=== PATIENT | female | born 1990 | race African-American/Black ===

== ENCOUNTER 2016-05-30 11:36 | Observation (INO) | payer OTHER ==
--- NOTE | ~2016-05-30 | CT2 ---
[facility] A Service of [facility] & [facility] RADIOLOGY TEXT RESULTS PATIENT: ALEM TRAN LOCATION: [facility] 464-01 : [birth year] UNIT #: [id number] AGE: [address]: Edwin Chinchilla MD SEX: F ORDER DR: [id number] [facility] [address] [place], [place] [address] [id number] E MR#: [id number] Acc #: [id number] NAME: ALEM TRAN : 1990 SEX: F STUDY DATE/TIME: 05/30/2016 15:27 UNIT: [facility] ROOM: STUDY DESCRIPTION: CT Abd and Pelv W Cont Attending Physician: Arin Nguyen A.P.R.N. Ordering Physician: Maggie Miramontes M.D. Primary Care Physician: Maame Smith MEDICAL IMAGING REPORT This report is preliminary unless electronic signature is present CT of the abdomen and pelvis with contrast INDICATION lower abdominal pain since [address] images were obtained from the dome of the diaphragm to the symphysis pubis following the administration of intravenous contrast material. This CT exam was performed with one or more of the following radiation dose reduction techniques: automatic exposure control, adjustment of mA and/or kV according to patient size, and iterative reconstruction. FINDINGS Liver, spleen, and gallbladder all appear unremarkable as are the stomach and proximal small bowel adrenal glands pancreas and kidneys also appear normal. No free fluid or adenopathy is seen within the abdomen. There is no evidence of mechanical bowel obstruction. Patient's appendix is visualized and is within normal limits. Uterus is unremarkable, as are the ovaries. No free fluid or adenopathy is seen within the pelvis. I do question if perhaps the colon is diffusely thick-walled. I am uncertain if this is a true finding, or if the colon simply appears this way due to incomplete distension. Certainly correlation with any evidence of colitis is suggested. No pneumatosis or free air is seen. Review of bony windows does not demonstrate any aggressive osseous abnormalities. IMPRESSION 1. I do question if the patient's colon is somewhat thick-walled. This may simply be related to incomplete distension but certainly correlation with any evidence of colitis is suggested. No STS. [facility] A Service of [facility] & [facility] RADIOLOGY TEXT RESULTS PATIENT: ALEM TRAN LOCATION: [facility] 464-01 : [birth year] UNIT #: [id number] AGE: [address]: Edwin Chinchilla MD SEX: F ORDER DR: pneumatosis or free air is seen and there is certainly no evidence of obstruction. 2. Patient's appendix is visualized and is within normal limits. Please see the body of the report for any other additional incidental findings Dictated by... Nicci Tavera M.D. THIS IS AN ELECTRONICALLY VERIFIED REPORT Nicci Tavera M.D. at 06/01/2016 6:29 PM AFF/ron TD: 05/30/2016 19:04 JOB #: [id number] MEDICAL IMAGING REPORT Page 1 of 1 COPY
--- NOTE | ~2016-05-30 | HP ---
Unit #: [id number] #: [id number] Patient: ALEM TRAN [id number] [address] [address] [id number] I MR#: [id number] NAME: ALEM TRAN ROOM: 464 Age: 25 Sex: F Admission Date: 05/30/2016 : 1990 Attending Physician: Edwin Chinchilla M.D. Primary Care Physician: Maame Smith HISTORY AND PHYSICAL CHIEF COMPLAINT Hematochezia and lower abdominal pain, as well as syncope. HISTORY Ms. Tran is a pleasant 25-year-old female. The patient lives at home by herself. She works for [employer]. She apparently presented with history of lower abdominal cramping pain followed by true syncope when she completed blacked out. Subsequently she had multiple episodes of diarrhea with bright red blood, along with cramping in the lower abdomen. Today she is feeling much better. There is no history of fever, chills or rigors. She has no similar history in the past. PAST MEDICAL HISTORY The patient has no significant past medical history. PAST SURGICAL HISTORY She has no prior surgery. MEDICATIONS Does not take any regular medications. ALLERGIES Denies any drug allergies. SOCIAL HISTORY She does not smoke, drink alcohol. 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 FAMILY HISTORY There is no family history of colon or pancreas cancer or liver disease. REVIEW OF SYSTEMS A detailed review of organ systems does not reveal any recent weight loss. No history of fevers, chills or rigors. No history of headache, seizures, chest pain. No history of cough, expectoration or hemoptysis. No history of dysuria, hematuria or polyuria. No history of focal seizures or extremity weakness. The rest of the review of organ systems is unremarkable. PHYSICAL EXAMINATION GENERAL: On examination, she is alert and oriented, appears comfortable. VITAL SIGNS: Vital signs are stable with a temperature of 98, pulse 72 per minute and regular, respiratory rate 16, blood pressure 127/79. She weighs 248 pounds and appears a little bit overweight. Unit #: [id number] #: [id number] Patient: ALEM TRAN GENERAL: She has no pallor, icterus, lymphadenopathy or peripheral edema. CARDIOVASCULAR: Normal heart sounds. No murmurs on auscultation. RESPIRATORY: The lungs reveal normal breath sounds, good air entry. ABDOMEN: The abdomen is soft and nontender. The liver and spleen are not palpable. Bowel sounds are normal. DIAGNOSTIC STUDIES LABORATORY: Lab evaluation reveals a normal CBC. Serum chemistry shows a potassium of 2.9, glucose of 114. LFTs normal. Albumin is 4.6. IMAGING: A CT scan of the abdomen has not been done. CLINICAL IMPRESSION Most likely etiology of the patient's presentation is acute ischemic colitis. A diagnostic colonoscopy is warranted and will be scheduled for tomorrow. The pros and cons of the procedure, potential risks and complications have been discussed with the patient, and she was reassured. Thank you very much for asking me to see this pleasant patient, and I appreciate the consult. Dictated by Lien Colon TD: 05/31/2016 09:50 JOB #: [id number] HISTORY AND PHYSICAL Page 1 of 1 X Edwin Chinchilla MD X HISTORY AND PHYSICAL
--- NOTE | ~2016-05-30 | EKG ---
PATIENT: ALEM TRAN UNIT #: [id number] Ventricular Rate: 69 BPM Atrial Rate: 69 BPM P-R Interval: 122 ms QRS Duration: 86 ms Q-T Interval: 408 ms QTC Calculation(Bezet): 437 ms P [place]: 19 degrees Calculated R [place]: 70 degrees Calculated T [place]: 22 degrees Diagnosis Line: Normal sinus rhythm Diagnosis Line: Normal ECG Diagnosis Line: No previous ECGs available Diagnosis Line: Confirmed by CEE MASCORRO MD ([id number]) on 05/30/2016 Diagnosis Line: 11:36:03 PM INTERPRETING MD: SUBHA PATEL
--- NOTE | ~2016-05-30 | OR ---
Unit #: [id number] #: [id number] Patient: ALEM TRAN [id number] [address] [address] [id number] I MR#: [id number] NAME: ALEM TRAN ROOM: 464 Date of Procedure: 05/31/2016 Admission Date: 05/30/2016 Surgeon: Edwin Chinchilla M.D. : 1990 Attending Physician: Edwin Chinchilla M.D. Primary Care Physician: Maame Smith OPERATIVE REPORT PREOPERATIVE DIAGNOSES The patient presented with history of hematochezia, lower abdominal cramping pain, and syncope. The overall history of suggestive ischemic colitis. PROCEDURES PERFORMED Colonoscopy and biopsies. POSTOPERATIVE DIAGNOSES 1. The patient had classic changes of ischemic colitis at the splenic flexure with localized area of ulceration, erythema, edema, and friability with clear line of demarcation proximally and distally. Appropriate biopsies were obtained. 2. Rest of the examination up to cecum and terminal ileum was normal. The quality of the prep was excellent. RECOMMENDATIONS 1. We will obtain the patient's protein S, C and antithrombin 3 levels as well as LALO. 2. She will be started on regular diet. She should be able to go home later today evening. SEDATION USED MAC. DESCRIPTION OF PROCEDURE Following detailed explanation of the potential risks and complications of a colonoscopy, namely perforation, bleeding, and complications related to sedation, the patient was brought to GI lab and laid in the left lateral decubitus position. A digital rectal examination was performed which was normal. Lubricated tip of the Olympus video colonoscope was inserted through the anus and advanced under direct vision. The scope was advanced and passed rectosigmoid into descending colon. No diverticula were noticed in this area. As soon as the scope was advanced in the mid descending colon, abrupt transition from normal to abnormal was seen in the form of erythema, edema, juventino ulceration, and friability. The ulceration extended in the area of the splenic flexure and distal transverse colon, again diverted to normal mucosa thereafter. The scope tip was then navigated all the way up to cecum with visualization of the ileocecal valve and the appendiceal orifice. Preparation was excellent with good visualization and photodocumentation was obtained. Last several inches of the terminal ileum also visualized after intubation of the Unit #: [id number] #: [id number] Patient: CHELSEA,ALEM ileocecal valve and appeared normal. Successive segments of the colonic mucosa were examined upon withdrawal and appeared unremarkable except for the changes of colonic ischemia noted earlier. Appropriate biopsies obtained from this area. No polyps were noted. The patient did not have any diverticulosis nor any hemorrhoids. The scope was then withdrawn. The patient returned to the recovery area. She tolerated the procedure without any postprocedure complications. Dictated by... Lien Colon/emmy TD: 05/31/2016 11:09 JOB #: [id number] CC: Maame Smith A.P.R.N. OPERATIVE REPORT Page 1 of 1 X Edwin Chinchilla MD X PROCEDURE OPERATIVE NOTE
[2016-05-30 10:26] LABS: BASOPHIL% 0.5 % (0-2.5); EOSINOPHIL% 0.4 % (0.0-7.0); HEMATOCRIT 47.7 % (35.0-45.0); HEMOGLOBIN 15.3 gm/dL (12.0-16.0); LYMPHOCYTE# 1.6 X10e3 (1.0-3.5); LYMPHOCYTE% 21.8 % (17.0-45.0); MEAN CORPUSCULAR HEMOGLOBIN 28.8 PG (28-34); MEAN PLATELET VOLUME 7.7 FL (6.5-11.5); MONOCYTE# 0.5 X10e3 (0-1.0); MONOCYTE% 6.9 % (3.0-12.0); NEUTROPHIL% 70.4 % (40-75); PLATELET COUNT 281 X10e3 (140-420); RED CELL DISTRIBUTION WIDTH 13.8 % (11.0-15.5); WHITE BLOOD COUNT 7.1 X10e3 (4.0-10.5)
[2016-05-30 10:30] LABS: DIFF IND NO
[2016-05-30 11:07] LABS: ALBUMIN SERUM 4.6 g/dL (3.5-5.0); BILIRUBIN, DIRECT 0.1 mg/dL (0.0-0.2); BILIRUBIN,INDIRECT 0.7 mg/dL (0.0-0.9); BILIRUBIN,TOTAL 0.8 mg/dL (0.2-2.0); BUN/CREATININE RATIO 15.55; CALCIUM SERUM 9.6 mg/dL (8.4-10.2); CREATININE SERUM 0.9 mg/dL (0.6-1.4); GLOM FILT RATE Estimated 87.7 mL/min (>60); PROTEIN TOTAL SERUM 8.6 g/dL (6.0-8.3)
[2016-05-30 11:13] LABS: POTASSIUM 2.9 mmol/L (3.5-5.1)
[2016-05-30 12:00] LABS: URINE SOURCE CLEAN CATCH
[2016-05-30 12:04] LABS: URINE APPEARANCE CLOUDY; URINE BLOOD NEG (NEG); URINE COLOR DK YELLOW; URINE GLUCOSE NEG (NEG); URINE KETONE TRACE (NEG); URINE LEUKOCYTE ESTERASE TRACE (NEG); URINE NITRATE NEG (NEG); URINE PROTEIN NEG (NEG); URINE SPECIFIC GRAVITY 1.027 (1.003-1.035)
[2016-05-30 12:07] LABS: CULTURE INDICATED? YES; URINE BACTERIA AUWI 1+ (NEGATIVE); URINE SQUAMOUS EPITHELIAL CELL OCC /[HPF]
[2016-05-30 12:09] LABS: URINE BILIRUBIN NEG (NEG)
[2016-05-30] MEDS ORDERED: NO MEDICATIONS (23:32)
[2016-05-31 03:32] LABS: BASOPHIL% 0.5 % (0-2.5); EOSINOPHIL% 0.3 % (0.0-7.0); HEMATOCRIT 42.9 % (35.0-45.0); HEMOGLOBIN 14.2 gm/dL (12.0-16.0); LYMPHOCYTE# 1.8 X10e3 (1.0-3.5); LYMPHOCYTE% 24.1 % (17.0-45.0); MEAN CELL VOLUME 89.4 FL (83-96); MEAN CORPUSCULAR HEMOGLOBIN 29.6 PG (28-34); MEAN CORPUSCULAR HGB CONC 33.1 g/dL (30-36); MEAN PLATELET VOLUME 7.9 FL (6.5-11.5); MONOCYTE# 0.6 X10e3 (0-1.0); MONOCYTE% 7.8 % (3.0-12.0); NEUTROPHIL# 5.2 X10e3 (1.5-7.1); NEUTROPHIL% 67.3 % (40-75); PLATELET COUNT 271 X10e3 (140-420); RED BLOOD COUNT 4.81 X10e (3.90-5.30); RED CELL DISTRIBUTION WIDTH 13.7 % (11.0-15.5); WHITE BLOOD COUNT 7.7 X10e3 (4.0-10.5)
[2016-05-31 03:34] LABS: DIFF IND NO
[2016-05-31 03:55] LABS: ALBUMIN SERUM 4.3 g/dL (3.5-5.0); BUN/CREATININE RATIO 8.75; CALCIUM SERUM 9.1 mg/dL (8.4-10.2); CREATININE SERUM 0.8 mg/dL (0.6-1.4); GLOM FILT RATE Estimated 117.2 mL/min (>60); POTASSIUM 3.7 mmol/L (3.5-5.1); PROTEIN TOTAL SERUM 7.7 g/dL (6.0-8.3)
[2016-05-31 20:37] LABS: CHLAMYDIA TRACH Not Detected (Not Detected); N GONOR Not Detected (Not Detected)
[2016-06-01 21:59] LABS: PROTEIN C ACTIVITY 92 % (70-180); PROTEIN S 84 % (60-140)
[2016-06-03 16:49] LABS: ANA SCREEN Negative (Negative)
== END 2016-05-31 19:03 | disposition home or self-care (01) | DRG 394 ==
LOC: CED 11:36 → CEDOF 17:00 → C4C 20:13
PROVIDERS: Internal Medicine Gastroenterology; Nurse Practitioner
DX: K55.9 Vascular disorder of intestine, unspecified (principal); K63.3 Ulcer of intestine; R55 Syncope and collapse; E87.6 Hypokalemia
CPT/HCPCS: 36415; 74177; 80048; 80053; 80076; 81003; 83690; 84703; 85025; 85301; 85303; 85306; 86038; 86039; 87086; 87491; 87591; 87808; 87905; 88305; 93005; 96365; 96366; 96368; 96375; 99285; G0378; J2270; J2550; Q9967